=== PATIENT | female | born 1935 | race Caucasian/White ===

== ENCOUNTER 2016-09-10 09:55 | Emergency (ER) | payer MEDICARE, OTHER ==
[~2016-09-10 09:55] MED LIST: ACTOS45 PO; B121000P IM; GLUCOTRO10 PO; GLUCPH8 PO; HALF81 PO; HYZAAR 100/25 T1 TAB PO; IMODIUM ADV PO; IMODIUM ADV1 CHW PO; JANUVIA100 MG PO; KAPIDEX60 MG PO; LANTUS SC; LIDODERM TOP; MCZ125 PO; MOBIC7.5 PO; PLAVIX PO; PREM625 PO; PREV30 PO; SKELAXIN8 PO; SYN.025B PO; TANDEM PLUS OR; TRAVATAN OPH; TYLENOL ARTH650 MG PO; ULTRAM50 PO; VICTOZA18 MG/3 ML SC; XANAX1 MG PO
[2016-09-10 10:46] LABS: BASOPHILS 0.4 %; BASOPHILS ABSOLUTE 0.04 10/3/uL (0.0-0.16); EOSINOPHILS ABSOLUTE 0.34 10/3/uL (0.0-0.53); HEMATOCRIT 23.3 % (36.0-48.0); HEMOGLOBIN 7.2 g/dL (12.0-16.0); IMMATURE GRANULOCYTES 0.3 %; IMMATURE GRANULOCYTES ABSOLUTE 0.03 10/3/uL (0.0-0.11); LYMPHOCYTES 21.2 %; LYMPHOCYTES ABSOLUTE 2.41 10/3/uL (0.67-4.30); MANUAL DIFF NO %; MEAN CORPUS HGB CONC 30.9 g/dL (32.0-36.0); MEAN CORPUSCULAR HEMOGLOB 22.1 pg (26.0-34.0); MEAN CORPUSCULAR VOLUME 71.5 fL (80-100); MEAN PLATELET VOLUME 8.2 fL (9.2-13.0); MONOCYTES 6.2 %; NEUTROPHILS 68.9 %; NEUTROPHILS ABSOLUTE 7.86 10/3/uL (2.02-8.40); PLATELET COUNT 411 10/3/uL (150-400); RED CELL COUNT 3.26 10/6/uL (4.0-5.6); WHITE BLOOD CELLS 11.4 10/3/uL (4.5-10.5)
[2016-09-10 10:52] LABS: INTERNATIONAL NORMAL RATI 1.2 UNITS (-); PROTIME (NOT ORD) 14.6 SEC (12.0-14.5)
[2016-09-10 10:53] LABS: PARTIAL THROMBO TIME 31.4 SEC (22.5-37.2)
[2016-09-10 10:59] LABS: A/G RATIO 0.8 (0.7-1.9); ALKALINE PHOSPHATASE 72 U/L (45-117); BUN (BLOOD UREA NITROGEN) 7 MG/DL (6-23); CALCIUM, SERUM 8.2 MG/DL (8.5-10.4); CHLORIDE, SERUM 95 MMOL/L (96-112); CO2 (CARBON DIOXIDE) 27 MMOL/L (24-34); GFR AFRICAN AMERICAN 70 ML/MIN (>=60); GFR NON AFRICAN AMERICAN 60 ML/MIN (>=60); GLOBULIN 3.9 G/DL (2.5-4.1); GLUCOSE, SERUM 221 MG/DL (60-99); POTASSIUM, SERUM 4.9 MMOL/L (3.5-5.3); SGOT(AST) 7 U/L (5-40); SGPT(ALT) 15 U/L (5-65); SODIUM, SERUM 133 MMOL/L (135-148); TOTAL BILIRUBIN 0.2 MG/DL (0-1.2); TOTAL PROTEIN 6.9 G/DL (6.0-8.5)
[2016-09-10 11:33] LABS: ANISOCYTOSIS 1+ (5-10/OIF) (0-5/OIF); PLATELET ESTIMATE ADQ (ADEQUATE)
[2016-09-10 11:34] LABS: MICROCYTES 1+ (5-10/OIF) (0-5/OIF)
[2016-09-23] MEDS ORDERED: LOP25 PO (14:04)
[2016-11-23] MEDS ORDERED: GLUCPH8 PO (21:22)
[2016-11-23] MEDS ORDERED: GLUCOTRO10 PO (21:23)
[2016-11-23] MEDS ORDERED: HYZAAR 100/25 T1 TAB PO (21:24)
[2016-11-23] MEDS ORDERED: LOP25 PO (21:24)
[2016-11-23] MEDS ORDERED: JANUVIA100 MG PO (21:24)
[2016-11-23] MEDS ORDERED: NEUR100 PO (21:25)
[2016-11-23] MEDS ORDERED: SKELAXIN8 PO (21:25)
[2016-11-23] MEDS ORDERED: KAPIDEX60 MG PO (21:25)
[2016-11-23] MEDS ORDERED: REST15 PO (21:25)
[2016-11-23] MEDS ORDERED: ASAB PO (21:26)
[2016-11-23] MEDS ORDERED: SYN.025B PO (21:26)
[2016-11-23] MEDS ORDERED: LANTUSCART SC (21:27)
[2016-11-23] MEDS ORDERED: L40 PO (21:27)
[2016-12-01] MEDS ORDERED: COREG12 PO (11:11)
[2016-12-01] MEDS ORDERED: COZAAR100 MG PO (11:12)
[2016-12-01] MEDS ORDERED: MAGOX4 PO (11:12)
[2016-12-01] MEDS ORDERED: SPIRO25 PO (11:15)
[2016-12-01] MEDS ORDERED: JANTOVEN4 MG PO (11:21)
[2016-12-01] MEDS ORDERED: APRES25 PO (11:22)
[2016-12-01] MEDS ORDERED: LIPITOR10 PO (11:23)
== END 2016-09-10 12:15 | disposition home or self-care (01) ==
LOC: CDUOP 09:55
PROVIDERS: Nurse Practitioner
DX: D64.9 Anemia, unspecified (principal); I10 Essential (primary) hypertension; E11.9 Type 2 diabetes mellitus without complications; Z86.73 Personal history of transient ischemic attack (TIA), and cerebral infarction without residual deficits; Z90.710 Acquired absence of both cervix and uterus; Z88.5 Allergy status to narcotic agent; Z88.1 Allergy status to other antibiotic agents; Z79.82 Long term (current) use of aspirin; Z79.4 Long term (current) use of insulin; Z79.899 Other long term (current) drug therapy; D50.8 Other iron deficiency anemias; R00.0 Tachycardia, unspecified
CPT/HCPCS: 36415; 80053; 85025; 85610; 85730; 86850; 86900; 86901; 86920; 93005; 99285; A9270-GY; J0360; P9016